=== PATIENT | female | born 1980 | race Caucasian/White ===

== ENCOUNTER 2020-10-18 08:02 | Emergency (ER) | payer OTHER ==
[~2020-10-18] VITALS: Ht 157.4 cm; Wt 63.5 kg
== END 2020-10-18 10:01 | disposition left against medical advice (07) ==
LOC: ED 08:02
DX: L03.213 Periorbital cellulitis (principal); Z88.1 Allergy status to other antibiotic agents; Z88.6 Allergy status to analgesic agent

== ENCOUNTER 2022-01-31 14:51 | Emergency (ER) | payer BC ==
[~2022-01-31] VITALS: Ht 154.9 cm; Wt 63.5 kg
[2022-01-31] MEDS ORDERED: IBU800 M2 PO (16:25)
== END 2022-01-31 17:29 | disposition home or self-care (01) ==
LOC: ED 14:51
DX: S90.32XA Contusion of left foot, initial encounter (principal); Z88.8 Allergy status to other drugs, medicaments and biological substances; W01.0XXA Fall on same level from slipping, tripping and stumbling without subsequent striking against object, initial encounter; Y93.89 Activity, other specified; Y92.89 Other specified places as the place of occurrence of the external cause; Y99.8 Other external cause status

== ENCOUNTER 2022-12-02 15:04 | Emergency (ER) | payer BC ==
[~2022-12-02] VITALS: Ht 157.4 cm; Wt 61.2 kg
[~2022-12-02 15:04] MED LIST: IBU800 M2 PO
== END 2022-12-02 17:31 | disposition home or self-care (01) ==
LOC: ED 15:04
DX: S61.411A Laceration without foreign body of right hand, initial encounter (principal); Z88.5 Allergy status to narcotic agent; W25.XXXA Contact with sharp glass, initial encounter; Y93.G1 Activity, food preparation and clean up; Y92.89 Other specified places as the place of occurrence of the external cause; Y99.8 Other external cause status

== ENCOUNTER 2025-06-18 20:27 | Emergency (ER) | payer OTHER ==
[~2025-06-18] VITALS: Ht 157.4 cm; Wt 65.8 kg
[2025-06-18] MEDS ORDERED: AZITHROMYCIN 250 ML IV ONE (21:45)
[2025-06-18] MEDS ORDERED: AZITHROMYCIN 250 MG TAB PO ONE (21:50)
[2025-06-18 22:10] LABS: BASO # 0.0 10*3/uL (0.0-0.1); BASO % 0.5 % (0.0-1.0); EOS # 0.2 10*3/uL (0.0-0.4); EOS % 2.6 % (1.0-4.0); MEAN CELL VOLUME 87.5 fl (81.0-99.0); MEAN CORPUSCULAR HGB 28.7 pg (27.0-31.0); MEAN PLATELET VOLUME 9.2 fl (9.6-12.3); MONO # 0.4 10*3/uL (0.1-1.0); MONO % 5.7 % (3.0-9.0); NEUT # 4.7 10*3/uL (2.3-7.9); NEUT % 61.5 % (47.0-73.0); NUCLEATED RED BLOOD CELL 0.0 % (0.0-0.0); NUCLEATED RED BLOOD CELL 0.0 10*3/uL (0.0-0.0); PLATELET COUNT AUTOMATED 273 10*3/uL (130-400); RED CELL DISTRI WIDTH 13.2 % (0-14.5)
[2025-06-18] MEDS ORDERED: ZITHROMAX250 MG PO (22:23)
[2025-06-18] MEDS ORDERED: MEDROL DOSEPAK4 MG PO (22:23)
[2025-06-18 22:42] LABS: BUN 11 mg/dl (9-23)
== END 2025-06-18 22:55 | disposition home or self-care (01) ==
LOC: ED 20:27
PROVIDERS: Nurse Practitioner Family
DX: J18.9 Pneumonia, unspecified organism (principal); Z88.5 Allergy status to narcotic agent; Z20.822 Contact with and (suspected) exposure to COVID-19